=== PATIENT | female | born 1975 | race Caucasian/White ===

== ENCOUNTER 2019-04-26 03:51 | Emergency (ER) | payer BC, OTHER ==
[2019-04-26] MEDS ORDERED: Pantoprazole 40 MG VIAL ONE (04:29)
[2019-04-26] MEDS ORDERED: Ondansetron PF 4 MG/2 ML Vial ONE ×2 (04:29→06:35)
[2019-04-26 04:40] LABS: #Eosinphils 0.1 thou/uL (0.0-0.7); #Monocytes 0.6 thou/uL (0.11-0.59); #Neutrophils 7.3 thou/uL (1.40-6.50); %Basophils 0.2 % (0.0-1.0); %Eosinophils 0.8 % (0.0-10.0); %Lymphocytes 11.3 % (21.0-51.0); %Monocytes 7.1 % (0.0-10.0); %Neutrophils 80.6 % (42.0-75.0); Hemoglobin 11.3 g/dL (12.0-16.0); Mean Corpuscular HGB CONC 33.8 g/dL (32.0-36.0); Mean Corpuscular Hemoglobin 27.8 pg (27.0-31.0); Mean Corpuscular Volume 82.2 fL (78.0-98.0); Mean Platelet Volume 7.6 fL (7.4-10.4); Platelet Count 235 thou/uL (130-400); RBC Distribution Width 13.7 % (11.5-14.5); Red Blood Cell (RBC) Count 4.07 mill/uL (4.20-5.40); White Blood Cell (WBC) Count 9.1 thou/uL (4.8-10.8)
[2019-04-26 05:05] LABS: ALT (SGPT) 10 U/L (8-55); AST (SGOT) 13 U/L (5-34); Albumin 3.8 g/dL (3.5-5.0); Alkaline Phosphatase 65 U/L (40-110); Anion Gap 11 mmol/L (10-20); BUN (Urea Nitrogen) 8 mg/dL (7.0-18.7); Bilirubin, Total 0.2 mg/dL (0.2-1.2); Calc. Creatinine Clearance 0 mL/min (70-130); Calcium 8.9 mg/dL (7.8-10.44); Carbon Dioxide 24 mmol/L (22-29); Chloride 104 mmol/L (98-107); Estimated GFR-MDRD 72; Globulin 3.1 g/dL (2.4-3.5); Glucose 103 mg/dL (70-105); Lipase 12 U/L (8-78); Potassium 3.3 mmol/L (3.5-5.1); Protein, Total 6.9 g/dL (6.0-8.3); Sodium 136 mmol/L (136-145)
[2019-04-26 05:17] LABS: BHCG - Serum Negative (NEGATIVE); Pregs Control Background? CLEAR/WHITE (CLR/WHITE); Pregs Control Bar Appear? YES (CONTROL BAR)
[2019-04-26] MEDS ORDERED: Morphine 4 MG/ML VIAL ONE (05:28)
[2019-04-26] MEDS ORDERED: cefTRIAXone\\ROCEPHIN 1 GM VIAL ONE (05:37)
[2019-04-26] MEDS ORDERED: Azithromycin 500 MG VIAL ONE (06:15)
[2019-04-26] MEDS ORDERED: Potassium Chloride 20 MEQ TAB ONE ×2 (06:15→06:35)
[2019-04-26] MEDS ORDERED: Promethazine HCl 25 MG/ML VIAL ONE (07:43)
--- NOTE | 2019-04-26 09:26 | RAD ---
EXAM: CHEST ONE VIEW HISTORY: Upper abdominal pain and fever. Nausea and vomiting. COMPARISON: CT abdomen on 04/26/2019. FINDINGS: The cardiac silhouette and pulmonary vasculature is within normal limits. There is consolidation seen at the medial aspect right lung base suggesting pneumonia which was shown to be in the region of the right middle lobe on recent CT exam. The osseous structures are intact. IMPRESSION: Right middle lobe pneumonia. Follow-up to complete resolution is recommended.
--- NOTE | 2019-04-26 09:29 | CT ---
PRELIMINARY REPORT/[facility]/EMERGENCY AFTER HOURS PROCEDURE: PROCEDURE INFORMATION: Exam: CT Abdomen And Pelvis With Contrast Exam date and time: 04/26/2019 5:08 AM Clinical history: 43 years old, female; Abdominal pain; Localized; Prior surgery; Patient HX: Er 12. 43 y/o F presents to ED C/O upper abd pain that began yesterday, with associated n/v, back pain. Fever. Surgical history of tubal ligation TECHNIQUE: Imaging protocol: Computed tomography of the abdomen and pelvis with intravenous contrast. COMPARISON: No relevant prior studies available. FINDINGS: Lungs: Incompletely visualized large right middle lobe pneumonia. Pleural space: Small bilateral pleural effusions. Liver: Small incidental hepatic hemangioma. Gallbladder and bile ducts: Normal. No calcified stones. No ductal dilation. Pancreas: Normal. No ductal dilation. Spleen: Normal. No splenomegaly. Adrenals: Normal. No mass. Kidneys and ureters: Nonobstructive nephrolithiasis right kidney. There is a small hypoattenuating lesion in each kidney which does not meet strict CT criteria a cyst and is indeterminate, potentially a hyperdense cyst. Stomach and bowel: No bowel wall thickening or intestinal obstruction. Appendix: Normal appendix. Intraperitoneal space: Unremarkable. No free air. No significant fluid collection. Vasculature: Unremarkable. No abdominal aortic aneurysm. Lymph nodes: Unremarkable. No enlarged lymph nodes. Bladder: Unremarkable as visualized. Reproductive: Unremarkable as visualized. Bones/joints: Unremarkable. No acute fracture. Soft tissues: Unremarkable. IMPRESSION: 1. Incompletely visualized large right middle lobe pneumonia. 2. Small bilateral pleural effusions. Thank you for allowing us to participate in the care of your patient. Dictated and Authenticated by: Carlos Iqbal MD 04/26/2019 5:23 AM Central Time ([place] & [place]) FINAL REPORT: EMERGENT AFTER HOURS CT ABDOMEN AND PELVIS WITH IV CONTRAST: HISTORY: Upper abdominal pain that began one day ago. Patient has associated nausea and vomiting as well as ba ck pain and fever. COMPARISON: None. IMPRESSION: 1. Incompletely imaged consolidation in the right middle lobe suggesting pneumonia. 2. Small bilateral pleural effusions and associated passive atelectasis. 3. Small hypodense lesion right hepatic lobe measuring 1.6 cm with peripheral discontinuous nodular a ppearing enhancement, and this most likely represents a hemangioma. 4. Subcentimeter difficult to characterize hypodense lesion right kidney with larger 2 cm hypodense l esion inferior pole left kidney each of which likely represents a cyst. 5. Nonobstructing inferior pole approximately 2 mm calculus right kidney. 6. Findings are in agreement with the preliminary report by [facility]. Transcribed Date/Time: 04/26/2019 9:55 AM
[2019-04-26] MEDS ORDERED: Iopamidol 370 76% 100 ML VIAL ONE (13:16)
== END 2019-04-26 09:10 | disposition home or self-care (01) ==
LOC: ERS 03:51
DX: J18.9 Pneumonia, unspecified organism (principal)
CPT/HCPCS: 36415; 71045; 74177; 80053; 83605; 83690; 84703; 85025; 87040; 87149; 96361; 96365; 96367; 96375; C9113; J0456; J0696; J2270; J2405; J2550; Q9967

== ENCOUNTER 2020-06-27 14:54 | Emergency (ER) | payer OTHER ==
[2020-06-27 15:22] LABS: #Basophils 0.1 thou/uL (0.0-0.2); #Eosinphils 0.2 thou/uL (0.0-0.7); #Lymphocytes 1.7 thou/uL (1.20-3.40); #Monocytes 0.4 thou/uL (0.11-0.59); #Neutrophils 4.9 thou/uL (1.40-6.50); %Basophils 0.9 % (0.0-1.0); %Eosinophils 2.4 % (0.0-10.0); %Lymphocytes 23.6 % (21.0-51.0); %Monocytes 5.7 % (0.0-10.0); %Neutrophils 67.5 % (42.0-75.0); Hemoglobin 11.1 g/dL (12.0-16.0); Mean Corpuscular HGB CONC 32.6 g/dL (32.0-36.0); Mean Corpuscular Hemoglobin 28.7 pg (27.0-31.0); Mean Platelet Volume 7.9 fL (7.4-10.4); Platelet Count 233 thou/uL (130-400); RBC Distribution Width 13.5 % (11.5-14.5); Red Blood Cell (RBC) Count 3.88 mill/uL (4.20-5.40); White Blood Cell (WBC) Count 7.3 thou/uL (4.8-10.8)
[2020-06-27 15:33] LABS: BHCG - Serum Negative (NEGATIVE); Pregs Control Background? CLEAR/WHITE (CLR/WHITE); Pregs Control Bar Appear? YES (CONTROL BAR)
[2020-06-27 15:42] LABS: ALT (SGPT) 21 U/L (8-55); AST (SGOT) 19 U/L (5-34); Alkaline Phosphatase 72 U/L (40-110); Anion Gap 10 mmol/L (10-20); BUN (Urea Nitrogen) 12 mg/dL (7.0-18.7); Bilirubin, Total 0.2 mg/dL (0.2-1.2); Calc. Creatinine Clearance 0 mL/min (70-130); Calcium 8.8 mg/dL (7.8-10.44); Carbon Dioxide 28 mmol/L (22-29); Chloride 103 mmol/L (98-107); Globulin 3.1 g/dL (2.4-3.5); Glucose 88 mg/dL (70-105); Lipase 22 U/L (8-78); Potassium 4.1 mmol/L (3.5-5.1); Protein, Total 7.1 g/dL (6.0-8.3); Sodium 137 mmol/L (136-145)
== END 2020-06-27 19:00 | disposition home or self-care (01) ==
LOC: ERS 14:54
DX: N93.8 Other specified abnormal uterine and vaginal bleeding (principal)
CPT/HCPCS: 36415; 80053; 83690; 84703; 85025; 86900; 86901; 99284